=== PATIENT | female | born 1980 | race Caucasian/White ===

== ENCOUNTER 2016-11-25 14:06 | Emergency (ER) | payer MEDICAID ==
[~2016-11-25] VITALS: Ht 167.6 cm; Wt 75.0 kg
[~2016-11-25 14:06] MED LIST: ACET500C5 PO; ALBU18HF INHALATION; ALBU8.5H3 INH; AZIT250T94 PO; CETI10CA PO; GUAI118L94 PO; IBUP800T25 PO; SODI44SP11 NASAL
[2016-11-25 14:26] VITALS: Ht 167.6 cm; Wt 75.0 kg
[2016-11-25] MEDS ORDERED: ALBUTEROL 0.083% (NEB) 2.5 MG/3 ML AMP HHN STA (15:18)
[2016-11-25] MEDS ORDERED: predniSONE 20 MG TAB PO ONE (15:30)
--- NOTE | 2016-11-25 15:49 | RADRPT ---
PROCEDURE: XR Chest. CLINICAL INDICATION: Shortness of breath TECHNIQUE: Single portable view of the chest was obtained. COMPARISON: 04/03/2015 FINDINGS: Normal cardiomediastinal silhouette. The lungs are clear. No pleural effusion or pneumothorax. IMPRESSION: No acute cardiopulmonary disease. RPTAT:AAJJ Physician Jose Date Time Electronically viewed and signed by Silvio Dickinson Physician on 11/25/2016 15:49 /
[2016-11-25] MEDS ORDERED: ALBU18HF INHALATION (16:24)
[2016-11-25] MEDS ORDERED: PRED20TA PO (16:24)
--- NOTE | 2016-11-25 16:31 | ERD ---
ER Documentation Chief Complaint Date/Time DATE: 11/25/16 TIME: 16:30 Chief Complaint Complains of cough and SOB since this am HPI This 36-year-old female presents with cough and wheezing for last 2-3 days. She denies any history of asthma. She may have had nasal congestion or URI symptoms are fever but no fever triage. She has vomiting, chest pain, abdominal pain. She denies urinary complaints ROS All systems reviewed and are negative except as per history of present illness. Medications Home Meds Active Scripts Albuterol Sulfate* (Ventolin HFA*) 18 Gm Hfa.aer.ad, 2 PUFF INHALATION Q4H, #1 INHALER Prov:SHANDRA DAVALOS MD 11/25/16 Prednisone* (Prednisone*) 20 Mg Tab, 40 MG PO DAILY for 4 Days, TAB Start November 26, 2016 Prov:SHANDRA DAVALOS MD 11/25/16 Cetirizine Hcl* (Zyrtec*) 10 Mg Capsule, 10 MG PO DAILY, #30 TAB.CHEW Prov:KATE SHAH NP 08/01/15 Guaifenesin-Codeine Phosphate* (Guaifenesin* with Codeine Liq) 120 Ml Liquid, 5 ML PO Q4H for COUGH, #60 ML Prov:KATE SHAH NP 08/01/15 Albuterol Sulfate* (Proair HFA*) 8.5 Gm Hfa.aer.ad, 2 PUFF INH Q4H Y for WHEEZING AND SOB, #1 INHALER Prov:KATE SHAH NP 08/01/15 Sodium Chloride (Saline Nasal [place]) 45 Ml [place], 2 SPRAYS NASAL Q2H Y for NASAL CONGESTION, #1 BOTTLE Prov:KIM GILLESPIE NP 04/03/15 Guaifenesin-Codeine Phosphate* (Guaifenesin* with Codeine Liq) 120 Ml Liquid, 5 ML PO Q4H for COUGH, #120 ML Prov:KIM GILLESPIE NP 04/03/15 Acetaminophen* (Tylophen*) 500 Mg Capsule, 1 CAP PO Q6H Y for PAIN AND OR ELEVATED TEMP, #20 CAP Prov:KIM GILLESPIE NP 04/03/15 Ibuprofen* (Motrin*) 800 Mg Tab, 800 MG PO Q6H Y for PAIN AND OR ELEVATED TEMP, #30 TAB Prov:KIM GILLESPIE. HOOP MAKER MACHINE 04/03/15 Azithromycin* (Zithromax*) 250 Mg Tablet, 250 MG PO .TinoPACK DIRECTED, #6 TAB TAKE 500 MG (2 TABS) THE FIRST DAY THEN 250 MG (1 TAB) DAYS 2-5 Prov:KIM GILLESPIE. HOOP MAKER MACHINE 04/03/15 Albuterol Sulfate* (Ventolin HFA*) 18 Gm Hfa.aer.ad, 2 PUFF INHALATION Q4H, #1 INHALER Prov:KIM GILLESPIE. HOOP MAKER MACHINE 04/03/15 Allergies Allergies: Coded Allergies: No Known Drug Allergy (Verified Allergy, Unknown, 11/25/16) PMhx/Soc History of Surgery: Yes (2 ) Hx Neurological Disorder: No Hx Respiratory Disorders: No Hx Cardiac Disorders: No Hx Psychiatric Problems: No Hx Miscellaneous Medical Probl: No Hx Alcohol Use: No Hx Substance Use: No Hx Tobacco Use: No Smoking Status: Never smoker Physical Exam Vitals Vital Signs Date Time Temp Pulse Resp B/P Pulse Ox O2 Delivery O2 Flow Rate FiO2 11/25/16 16:08 78 18 96 21 11/25/16 14:26 99.6 76 20 137/79 98 Physical Exam Const: [] Alert, [id number]. Head: Atraumatic Eyes: Normal Conjunctiva ENT: Normal External Ears, Nose and Mouth. Neck: Full range of motion..~ No meningismus. Resp: Clear to auscultation bilaterally with scattered wheezing without rales or retractions. Cardio: Regular rate and rhythm, no murmurs Abd: Soft, non tender, non distended. Normal bowel sounds Skin: No petechiae or rashes Back: No midline or flank tenderness Ext: No cyanosis, or edema Neur: Awake and alert Psych: Normal Mood and Affect Results 24 hrs Current Medications Medications (Trade) Dose Ordered Sig/Dayanna Route PRN Reason Start Time Stop Time Status Last Admin Dose Admin Prednisone (Prednisone) 60 mg ONCE ONCE PO 11/25/16 15:30 11/25/16 15:31 DC 11/25/16 15:45 Albuterol (Proventil 0.083% (Neb)) 5 mg ONCE STAT HHN 10/8/17 15:18 11/25/16 15:20 DC 11/25/16 16:07 Procedures/MDM Chest X-ray 1V Interpreted by me: Soft Tissue: No acute abnormalities Bones: No acute abnormalities Mediastinum/Cardiac Silhouette/Lungs: [No acute abnormalities] patient have normal 1 view chest x-ray Patient is given prednisone 60 mg and albuterol treatment. Patient clear lungs on serial exam without rales or retractions. Patient presents URI symptoms with reactive airway disease, likely viral. She is no evidence of hypoxemia, respiratory distress. She will be treated with short course of prednisone and albuterol at home and return precautions primary care follow-up and observation at home. The patient was stable with no new complaints during the ER course. Clinically, there is no current evidence to suggest meningitis, sepsis, acute abdomen, pneumonia, acute coronary syndrome, pulmonary embolism, or any other emergent condition appearing to require further evaluation or hospitalization. The patient should certainly return for any new or worsening symptoms per the aftercare instructions. They should otherwise follow-up with her primary care doctor for reevaluation this week. Departure Diagnosis: Primary Impression: URI, acute Condition: Stable Patient Instructions: Uri, Viral W/ Wheezing (Adult) Additional Instructions: X-ray normal hoy. Cheque otro vez con hernandez doctor primario en el proximo laura or regresa para mas o nueva simptomas. SHANDRA DAVALOS MD Nov 25, 2016 16:31
== END 2016-11-25 17:00 | disposition home or self-care (01) ==
LOC: FTE 14:06
DX: J06.9 Acute upper respiratory infection, unspecified (principal)
CPT/HCPCS: 71010; 94664; J7512; Z7502; Z7610

== ENCOUNTER 2018-02-07 01:28 | Emergency (ER) | payer MEDICAID ==
[~2018-02-07] VITALS: Wt 76.3 kg
[~2018-02-07 01:28] MED LIST changes: -ALBU8.5H3 INH; +ALBU8.5H8 INH; +AZIT250T PO; -AZIT250T94 PO; -IBUP800T25 PO; +IBUP800T48 PO; +PRED20TA PO
--- NOTE | 2018-02-07 02:05 | ERD ---
ER Documentation Chief Complaint Chief Complaint cough, SOB x 2 days. denies any PMH HPI This is a 38-year-old female who presents here in emergency department with complaints of cough and congestion for about 4 days. Also complains of throat pain. Also complains of nasal congestion. LMP: Stated that he was January 18, 2018. A0. Denies headache, head injury, loss of consciousness, dizziness, neck pain, neck stiffness, throat pain, difficulty swallowing, difficulty breathing lying flat, shoulder pain, chest pain, back pain, abdominal pain, nausea, vomiting, constipation, diarrhea, urinary symptoms, or possibility being , loss of bowel and bladder control, trauma, injury, falls, difficulty walking due to pain, numbness or tingling sensation, calf pain, recent travel, recent major surgery in the last 3 weeks, calf pain, recent long travel, recent exposure to any illness, recent antibiotic use in the last 3 months, fever, chills, seizures. Past medical history: Denies. Surgical history: Denies. Social: Denies smoking, use of alcoholic beverages, use of illegal drugs. ROS All systems reviewed and are negative except as per history of present illness. Medications Home Meds Active Scripts Benzonatate* (Tessalon Perle*) 100 Mg Capsule, 100 MG PO Q8H PRN for COUGH, #15 CAP Prov:JOSE LOUIS 02/07/18 Albuterol Sulfate* (Proair HFA*) 8.5 Gm Hfa.aer.ad, 2 PUFF INH Q4H PRN for WHEEZING AND SOB, #1 INHALER Prov:JOSE LOUIS 02/07/18 Azithromycin* (Zithromax*) 250 Mg Tablet, 250 MG PO .PILI DIRECTED, #6 TAB TAKE 500 MG (2 TABS) THE FIRST DAY THEN 250 MG (1 TAB) DAYS 2-5 Prov:JOSE LOUIS 02/07/18 Amoxicillin/Potassium Clav (Amox-Clav 875-125 mg Tablet) 875-125 mg Tab, 1 TAB PO BID for 10 Days, #20 TAB Prov:JOSE LOUIS F 02/07/18 Albuterol Sulfate* (Ventolin HFA*) 18 Gm Hfa.aer.ad, 2 PUFF INHALATION Q4H, #1 INHALER Prov:SHANDRA DAVALOS MD 11/25/16 Prednisone* (Prednisone*) 20 Mg Tab, 40 MG PO DAILY for 4 Days, TAB Start November 26, 2016 Prov:SHANDRA DAVALOS MD 11/25/16 Cetirizine Hcl* (Zyrtec*) 10 Mg Capsule, 10 MG PO DAILY, #30 TAB.CHEW Prov:KATE SHAH OPENSTACK DEVELOPER 08/01/15 Guaifenesin-Codeine Phosphate* (Guaifenesin* with Codeine Liq) 120 Ml Liquid, 5 ML PO Q4H for COUGH, #60 ML Prov:KATE SHAH NP 08/01/15 Albuterol Sulfate* (Proair HFA*) 8.5 Gm Hfa.aer.ad, 2 PUFF INH Q4H PRN for WHEEZING AND SOB, #1 INHALER Prov:KATE SHAH NP 08/01/15 Sodium Chloride (Saline Nasal [place]) 45 Ml [place], 2 SPRAYS NASAL Q2H PRN for NASAL CONGESTION, #1 BOTTLE Prov:KIM GILLESPIE NP 04/03/15 Guaifenesin-Codeine Phosphate* (Guaifenesin* with Codeine Liq) 120 Ml Liquid, 5 ML PO Q4H for COUGH, #120 ML Prov:KIM GILLESPIE NP 04/03/15 Acetaminophen* (Tylophen*) 500 Mg Capsule, 1 CAP PO Q6H PRN for PAIN AND OR ELEVATED TEMP, #20 CAP Prov:KIM GILLESPIE NP 04/03/15 Ibuprofen* (Motrin*) 800 Mg Tab, 800 MG PO Q6H PRN for PAIN AND OR ELEVATED TEMP, #30 TAB Prov:KIM GILLESPIE NP 04/03/15 Azithromycin* (Zithromax*) 250 Mg Tablet, 250 MG PO .PILI DIRECTED, #6 TAB TAKE 500 MG (2 TABS) THE FIRST DAY THEN 250 MG (1 TAB) DAYS 2-5 Prov:KIM GILLESPIE NP 04/03/15 Albuterol Sulfate* (Ventolin HFA*) 18 Gm Hfa.aer.ad, 2 PUFF INHALATION Q4H, #1 INHALER Prov:KIM GILLESPIE NP 04/03/15 Allergies Allergies: Coded Allergies: No Known Drug Allergy (Verified Allergy, Unknown, 11/25/16) PMhx/Soc History of Surgery: Yes (2 ) Hx Neurological Disorder: No Hx Respiratory Disorders: No Hx Cardiac Disorders: No Hx Psychiatric Problems: No Hx Miscellaneous Medical Probl: No Hx Alcohol Use: No Hx Substance Use: No Hx Tobacco Use: No Physical Exam Vitals Vital Signs Date Temp Pulse Resp B/P (MAP) Pulse Ox O2 O2 Flow FiO2 Time Delivery Rate 02/07/18 98.0 90 18 134/82 97 02:20 (99) 02/07/18 97.2 89 20 135/79 98 01:31 (97) Physical Exam Const: No acute distress Head: Atraumatic Eyes: Normal Conjunctiva ENT: Normal External Ears, Nose and Mouth. Bilateral ears: TM is mildly erythematous. No bleeding. No discharge. No hearing loss. Nose: There is frontal and maxillary sinus tenderness to palpation. Throat: Uvula is in midline and nondisplaced. Tonsils are +2 bilaterally with redness but no exudates. Tolerating secretions. Patent airway. Speaks full and clear sentences. No tripoding. Neck: Full range of motion. No meningismus. No nuchal rigidity. No signs of meningeal irritation. Resp: Clear to auscultation bilaterally. Cardio: Regular rate and rhythm, no murmurs Abd: Soft, non tender, non distended. Normal bowel sounds Skin: No petechiae or rashes Back: No midline or flank tenderness Ext: No cyanosis, or edema Neur: Awake and alert. No neurological deficits. Psych: Normal Mood and Affect Procedures/MDM Diagnostic tests: Clinical exam. Offered chest x-ray but patient strongly refused. Stated that he prefers to be prescribed strong antibiotics. Treatment: Not applicable. Re-evaluation: Appears comfortable at the waiting area. Differential diagnosis I have low suspicion for sepsis, severe serious bacterial infection, meningitis, mastoiditis, peritonsillar abscess, status asthmaticus, bronchospasms. Final diagnosis: Sinusitis. Mild otitis media. Bronchitis. Prescription: Pro-air. Augmentin. Azithromycin. Tessalon Perles. Follow-up with PCP in the next 24-48 hours. Come back here in the emergency department for any new symptoms or any worsening symptoms. All questions and concerns were answered. Patient and family members verbalized understanding and agreed with plan of care. Hemodynamically stable on discharge. Departure Diagnosis: Primary Impression: Cough Additional Impressions: Otitis media Sinusitis Bronchitis Condition: Stable Additional Instructions: Follow-up with PCP in the next 24-48 hours. Come back here in the emergency department for any new symptoms or any worsening symptoms. JOSE LOUIS Feb 07, 2018 02:05
[2018-02-07] MEDS ORDERED: ALBU8.5H8 INH (02:06)
[2018-02-07] MEDS ORDERED: AZIT250T PO (02:06)
[2018-02-07] MEDS ORDERED: AMOX1TAB10 PO (02:06)
[2018-02-07] MEDS ORDERED: BENZ-6 PO (02:07)
[2018-02-07 02:20] VITALS: BP 134/82; PULSE 90; RESP 18
== END 2018-02-07 02:29 | disposition home or self-care (01) ==
LOC: FTE 01:28
DX: H66.93 Otitis media, unspecified, bilateral (principal); J32.9 Chronic sinusitis, unspecified; J40 Bronchitis, not specified as acute or chronic
CPT/HCPCS: 99283

== ENCOUNTER 2018-08-08 11:06 | Emergency (ER) | payer MEDICAID ==
[~2018-08-08] VITALS: Ht 152.4 cm; Wt 75.5 kg
[~2018-08-08 11:06] MED LIST changes: +AMOX1TAB10 PO; +BENZ-6 PO
[2018-08-08 11:11] VITALS: BP 151/65; PULSE 114; RESP 20; Ht 152.4 cm; Wt 75.5 kg
[2018-08-08] MEDS ORDERED: ACETAMINOPHEN 500 MG TAB PO STA (11:42)
[2018-08-08] MEDS ORDERED: AMOX1TAB9 PO (11:43)
--- NOTE | 2018-08-08 11:46 | ERD ---
ER Documentation Chief Complaint Chief Complaint FEVERS, HEADACHE, MYALGIA, COUGH X3 DAYS HPI Old female presents the emergency department complaining of fever, cough, myalgias for the last 3 days. Patient states that she has had no difficulty breathing. She states that her cough is productive of yellowish sputum. She reports no chest pain or shortness of breath. She reports nonspecific discomfort about most of her muscles but most specifically in the back. She reports no dysuria or hematuria. ROS All systems reviewed and are negative except as per history of present illness. Medications Home Meds Active Scripts Amoxicillin/Potassium Clav (Amox-Clav 500-125 mg Tablet) 500-125 mg Tab, 1 TAB PO BID for 7 Days, TAB Prov:MACIE VIVAR 08/08/18 Benzonatate* (Tessalon Perle*) 100 Mg Capsule, 100 MG PO Q8H PRN for COUGH, #15 CAP Prov:JOSE LOUIS 02/07/18 Albuterol Sulfate* (Proair HFA*) 8.5 Gm Hfa.aer.ad, 2 PUFF INH Q4H PRN for WHEEZING AND SOB, #1 INHALER Prov:JOSE LOUIS 02/07/18 Azithromycin* (Zithromax*) 250 Mg Tablet, 250 MG PO .TinoPACK DIRECTED, #6 TAB TAKE 500 MG (2 TABS) THE FIRST DAY THEN 250 MG (1 TAB) DAYS 2-5 Prov:JOSE LOUIS 02/07/18 Amoxicillin/Potassium Clav (Amox-Clav 875-125 mg Tablet) 875-125 mg Tab, 1 TAB PO BID for 10 Days, #20 TAB Prov:JOSE LOUIS 02/07/18 Albuterol Sulfate* (Ventolin HFA*) 18 Gm Hfa.aer.ad, 2 PUFF INHALATION Q4H, #1 INHALER Prov:SHANDRA DAVALOS MD 11/25/16 Prednisone* (Prednisone*) 20 Mg Tab, 40 MG PO DAILY for 4 Days, TAB Start November 26, 2016 Prov:SHANDRA DAVALOS MD 11/25/16 Cetirizine Hcl* (Zyrtec*) 10 Mg Capsule, 10 MG PO DAILY, #30 TAB.CHEW Prov:KATE SHAH NP 08/01/15 Guaifenesin-Codeine Phosphate* (Guaifenesin* with Codeine Liq) 120 Ml Liquid, 5 ML PO Q4H for COUGH, #60 ML Prov:KATE SHAH NP 08/01/15 Albuterol Sulfate* (Proair HFA*) 8.5 Gm Hfa.aer.ad, 2 PUFF INH Q4H PRN for WHEEZING AND SOB, #1 INHALER Prov:KATE SHAH NP 08/01/15 Sodium Chloride (Saline Nasal [place]) 45 Ml [place], 2 SPRAYS NASAL Q2H PRN for NASAL CONGESTION, #1 BOTTLE Prov:KIM GILLESPIE NP 04/03/15 Guaifenesin-Codeine Phosphate* (Guaifenesin* with Codeine Liq) 120 Ml Liquid, 5 ML PO Q4H for COUGH, #120 ML Prov:KIM GILLESPIE NP 04/03/15 Acetaminophen* (Tylophen*) 500 Mg Capsule, 1 CAP PO Q6H PRN for PAIN AND OR ELEVATED TEMP, #20 CAP Prov:KIM GILLESPIE WRITING TUTOR 04/03/15 Ibuprofen* (Motrin*) 800 Mg Tab, 800 MG PO Q6H PRN for PAIN AND OR ELEVATED TEMP, #30 TAB Prov:KIM GILLESPIE NP 04/03/15 Azithromycin* (Zithromax*) 250 Mg Tablet, 250 MG PO .ZPACK DIRECTED, #6 TAB TAKE 500 MG (2 TABS) THE FIRST DAY THEN 250 MG (1 TAB) DAYS 2-5 Prov:KIM GILLESPIE NP 04/03/15 Albuterol Sulfate* (Ventolin HFA*) 18 Gm Hfa.aer.ad, 2 PUFF INHALATION Q4H, #1 INHALER Prov:KIM GILLESPIE WRITING TUTOR 04/03/15 Allergies Allergies: Coded Allergies: No Known Drug Allergy (Verified Allergy, Unknown, 11/25/16) PMhx/Soc History of Surgery: Yes (2 ) Anesthesia Reaction: No Hx Neurological Disorder: No Hx Respiratory Disorders: No Hx Cardiac Disorders: No Hx Psychiatric Problems: No Hx Miscellaneous Medical Probl: No Hx Alcohol Use: No Hx Substance Use: No Hx Tobacco Use: No Smoking Status: Never smoker FmHx Patient has a daughter that had a recent pneumonia that required antibiotics. Physical Exam Vitals Vital Signs Date Temp Pulse Resp B/P (MAP) Pulse Ox O2 O2 Flow FiO2 Time Delivery Rate 08/08/18 103.8 114 20 151/65 98 11:11 (93) Physical Exam GENERAL: The patient is well developed and appropriate for usual state of health in no apparent distress HEENT: Pupils equal, round, and reactive to light. EOMI. There is no scleral icterus. NECK: C-spine is soft and supple, there is no meningismus. There is no cervical lymphadenopathy. LUNGS: Clear to auscultation bilaterally. There are no rales, wheezes or rhonchi. HEART: Regular rate and rhythm, no murmurs, clicks, rubs or gallops. ABDOMEN: Soft, non-tender, non-distended. There are bowel sounds in all four quadrants. No rebound or guarding. EXTREMITIES: There is no peripheral cyanosis or edema. No focal swelling or erythema. NEURO: The patient moves all four extremities with 5/5 strength. Cranial nerves II - XII are intact. Normal gait. Alert and oriented SKIN: There is no apparent rash or petechiae. HEME/LYMPHATIC: There is no evidence of excessive bruising or lymphedema. PSYCHIATRIC: The patient does not appear anxious or depressed. Results 24 hrs Current Medications Medications Dose Sig/Dayanna Start Time Status Last (Trade) Ordered Route PRN Stop Time Admin Dose Reason Admin 1,000 mg ONCE STAT 08/08/18 DC Acetaminophen PO 11:42 (Tylenol 08/08/18 11:43 Tab) Procedures/MDM Patient was taken to a room, seen and examined Medical decision makin-year-old nontoxic female presents with what appears to be a viral type syndrome. Given the patient's symptoms, she likely has a mild bronchitis. I have educated her that this is likely viral, but patient is concerned that she needs antibiotics given that her daughter just recently required antibiotics. At this time, patient is without evidence of hypoxemia, sepsis, dehydration or other high-risk concerns and seems appropriate for discharge. Departure Diagnosis: Primary Impression: Bronchitis Condition: Stable Patient Instructions: Bronchitis, Antiobiotic Treatment (Adult) Additional Instructions: Please see your doctor if not improved in the next 2 to 3 days. MACIE VIVAR Aug 08, 2018 11:46
== END 2018-08-08 12:33 | disposition home or self-care (01) ==
LOC: FTE 11:06
DX: J40 Bronchitis, not specified as acute or chronic (principal)
CPT/HCPCS: 99283